=== PATIENT | male | born 1960 | race Caucasian/White ===

== ENCOUNTER 2019-10-23 09:34 | Day surgery (SDC) | payer BC ==
[~2019-10-23 09:34] MED LIST: Lactated Ringers 1,000 ML IV SCH; Lidocaine 1%/Sod Bicarbonate in NS 8.4% 1 ML Syringe IDERM PRN; Sodium Chloride 0.9% 10 ML Syringe FLUSH PRN
[2019-10-23] MEDS ORDERED: Propofol 200 MG/20 ML SDV ONE (10:40)
[2019-10-23] MEDS ORDERED: Midazolam 1 MG/ML 2 ML SDV ONE (10:41)
[2019-10-23] MEDS ORDERED: Lidocaine 1% 8 ML ONE (10:41)
[2019-10-23] MEDS ORDERED: ePHEDrine Sulfate/0.9% NaCl/Pf 25 MG/5 ML SYRINGE IV ONE (10:42)
[2019-10-23] MEDS ORDERED: fentaNYL 250 MCG/5 ML SDV ONE (10:48)
[2019-10-23] MEDS ORDERED: Ondansetron 4 MG/2 ML SDV ONE (10:49)
[2019-10-23] MEDS ORDERED: Dexamethasone 4 MG/ML 5 ML MDV ONE ×2 (10:49→15:29)
[2019-10-23] MEDS ORDERED: Albuterol 0.083% 2.5 MG/3 ML Neb Soln NEB ONE (11:18)
--- NOTE | 2019-10-23 11:20 | PCM.PREANE ---
Preanesthetic Assessment - Anesthesia/Transfusion/Family Hx Anesthesia History: Prior Anesthesia Without Reaction Family History of Anesthesia Reaction: No Transfusion History: No Prior Transfusion(s) - Review of Systems General: No Symptoms Pulmonary: No Symptoms Cardiovascular: No Symptoms Gastrointestinal: No Symptoms Neurological: No Symptoms Other: Reports: None - Physical Assessment NPO Status Date: 10/22/19 NPO Status Time: 19:00 Vital Signs: Last Vital Signs Temp 36.8 C 10/23/19 10:10 Pulse 55 L 10/23/19 10:10 Resp 18 10/23/19 10:10 BP 140/95 H 10/23/19 10:10 Pulse Ox 95 10/23/19 10:10 Height: 1.8 m Weight: 124.1 kg ASA Class: 2 Mental Status: Alert & Oriented x3 Airway Class: Mallampati = 2 Thyro-Mental Finger Breadths: 3 Mouth Opening Finger Breadths: 3 (TMJ no pain with opening) ROM/Head Extension: Full Lungs: Clear to Auscultation, Normal Respiratory Effort - Allergies Allergies/Adverse Reactions: Allergies Allergy/AdvReac Type Severity Reaction Status Date / Time No Known Allergies Allergy Verified 10/20/19 11:53 - Acknowledgements Anesthesia Type Planned: General Anesthesia Pt an Appropriate Candidate for the Planned Anesthesia: Yes Alternatives and Risks of Anesthesia Discussed w Pt/Guardian: Yes Pt/Guardian Understands and Agrees with Anesthesia Plan: Yes PreAnesthesia Questionnaire HEENT History: Reports: Impaired Vision, Other (See Below) Other HEENT History: TMJ, upper dentures, glasses Cardiovascular History: Reports: High Cholesterol, Hypertension, SOB on Exertion Respiratory History: Reports: Sleep Apnea Other Respiratory History: Uses CPAP Gastrointestinal History: Reports: Cholelithiasis, Fatty Liver, GERD, Hemorrhoids, Hiatal Hernia Genitourinary History: Reports: None Musculoskeletal History: Reports: Arthritis Psychiatric History: Reports: Anxiety Endocrine/Metabolic History: Reports: None Hematologic History: Reports: None Immunologic History: Reports: None Oncologic (Cancer) History: Reports: None Dermatologic History: Reports: Other (See Below) Other Dermatologic History: Basal cell carcinoma, atypical nevus - Past Surgical History Head Surgeries/Procedures: Reports: None HEENT Surgical History: Reports: Naso-Sinus Surgery, Tonsillectomy, Other (See Below) Other HEENT Surgeries/Procedures: Turbinate reduction, bilateral blepharoplasty , TMJ Cardiovascular Surgical History: Reports: None Respiratory Surgical History: Reports: None GI Surgical History: Reports: Colonoscopy, EGD Male Surgical History: Reports: None Endocrine Surgical History: Reports: None Neurological Surgical History: Reports: Thoracic Spine, Other (See Below) Other Neurological Surgeries/Procedures: Anterior cervical diskectomy and fusion , back surgery Musculoskeletal Surgical History: Reports: None Oncologic Surgical History: Reports: None Dermatological Surgical History: Reports: None - SUBSTANCE USE Smoking Status *Q: Former Smoker Tobacco Use Within Last Twelve Months: No Second Hand Smoke Exposure: No Recreational Drug Use History: No - HOME MEDS Home Medications: Home Meds Aspirin [Halfprin] 81 mg PO DAILY 10/20/19 [History] Calcium Carb/Vit D3/Minerals [Calcium 600+D Plus Minerals] 1 tab PO DAILY [History] Diltiazem HCl [Diltiazem ER] 300 mg PO DAILY 10/20/19 [History] Escitalopram Oxalate [Lexapro] 20 mg PO DAILY 10/20/19 [History] Esomeprazole Magnesium [Nexium] 20 mg PO DAILY 10/20/19 [History] LORazepam [Ativan] 0.25 - 0.5 mg PO DAILY 10/20/19 [History] Lisinopril [Zestril] 10 mg PO DAILY 10/20/19 [History] Multivitamin with Minerals [Multivitamins with Minerals] 1 tab PO DAILY [History] [place]-3/DHA/Epa/Fish Oil [[place]-3 Fish Oil 1,000 MG Sfgl] 1,000 mg PO BID [History] Pramipexole [Mirapex] 0.125 mg PO BEDTIME 10/20/19 [History] Pravastatin [Pravachol] 20 mg PO BEDTIME 10/20/19 [History] - CURRENT (IN HOUSE) MEDS Current Meds: Current Medications Lactated Ringer's (Ringers, Lactated) 1,000 mls @ 125 mls/hr IV ASDIRECTED MARCOS Stop: 10/23/19 23:00 Last Admin: 10/23/19 10:22 Dose: 125 mls/hr Lidocaine/Sodium Bicarbonate (Buffered Lidocaine 1% In Ns 8.4%) 0.25 ml IDERM ONETIME PRN PRN Reason: Prior to IV Start Stop: 10/23/19 18:00 Sodium Chloride (Saline Flush) 10 ml FLUSH ASDIRECTED PRN PRN Reason: Keep Vein Open Stop: 10/23/19 18:00 Discontinued Medications Dexamethasone (Dexamethasone) Confirm Administered Dose 20 mg .ROUTE .STK-MED ONE Stop: 10/23/19 10:50 Ephedrine Sulfate (Ephedrine 25 Mg/5 Ml Syringe) Confirm Administered Dose 25 mg IV .STK-MED ONE Stop: 10/23/19 10:43 Fentanyl (Sublimaze) Confirm Administered Dose 250 mcg .ROUTE .STK-MED ONE Stop: 10/23/19 10:49 Lidocaine HCl (Xylocaine-Mpf 1%) Confirm Administered Dose 8 mls @ as directed .ROUTE .STK-MED ONE Stop: 10/23/19 10:42 Midazolam HCl (Versed 1 Mg/Ml) Confirm Administered Dose 2 mg .ROUTE .STK-MED ONE Stop: 10/23/19 10:42 Miscellaneous Medication (Phenylephrine 1 Mg/10 Ml-Ns) Confirm Administered Dose 1 mg IV .STK-MED ONE Stop: 10/23/19 10:43 Ondansetron HCl (Zofran) Confirm Administered Dose 4 mg .ROUTE .STK-MED ONE Stop: 10/23/19 10:50 Propofol (Diprivan 20 Ml) Confirm Administered Dose 400 mg .ROUTE .STK-MED ONE Stop: 10/23/19 10:41
[2019-10-23] MEDS ORDERED: Lidocaine 1% 50 ML MDV ONE (11:37)
[2019-10-23] MEDS ORDERED: Rocuronium 50 MG/5 ML Vial ONE ×2 (13:45→15:20)
[2019-10-23] MEDS ORDERED: HYDROmorphone 0.5 MG/0.5 ML Syringe ONE ×2 (13:48→14:54)
[2019-10-23] MEDS ORDERED: Ketamine 500 mg/10 ML MDV ONE (13:48)
[2019-10-23] MEDS ORDERED: Lactated Ringers 1,000 ML ONE ×2 (14:33→15:04)
[2019-10-23] MEDS ORDERED: Ondansetron 4 MG/2 ML SDV IVPUSH PRN (14:37)
[2019-10-23] MEDS ORDERED: fentaNYL 100 MCG/2 ML SDV IVPUSH PRN (14:37)
[2019-10-23] MEDS ORDERED: diphenhydrAMINE 50 MG/ML SDV IVPUSH PRN (14:37)
[2019-10-23] MEDS ORDERED: HYDROmorphone 0.5 MG/0.5 ML Syringe IVPUSH ONE (14:37)
[2019-10-23] MEDS ORDERED: Albuterol 6.7 GM Inhaler INH ONE (15:32)
[2019-10-23] MEDS ORDERED: Bupivacaine 0.25% 10 ML SDV ONE (15:43)
[2019-10-23] MEDS ORDERED: Albuterol 0.083% 2.5 MG/3 ML Neb Soln ONE (16:30)
[2019-10-23] MEDS ORDERED: Ketorolac 30 MG/ML SDV ONE (16:39)
--- NOTE | 2019-10-23 16:52 | PCM.POSTAN ---
POST ANESTHESIA ASSESSMENT - MENTAL STATUS Mental Status: Alert, Oriented, Other (Drowsy) - VITAL SIGNS Vital Signs: Last Vital Signs Temp 37.1 C 10/23/19 16:45 Pulse 88 L 10/23/19 16:45 Resp 14 10/23/19 16:45 BP 163/76 H 10/23/19 16:45 Pulse Ox 91 L 10/23/19 16:45 1631 98.4F 145/110 88 19 90% - RESPIRATORY Respiratory Status: Respiratory Rate WNL, Airway Patent, O2 Saturation Stable, Supplemental Oxygen - CARDIOVASCULAR CV Status: Pulse Rate WNL, Blood Pressure Stable - GASTROINTESTINAL GI Status: No Symptoms - PAIN Pain Score: 0 - POST OP HYDRATION Hydration Status: Adequate & Stable
--- NOTE | 2019-10-23 17:28 | PCM48HPAN ---
Post Anesthesia Note - EVALUATION WITHIN 48HRS OF ANESTHETIC Vital Signs in Normal Range: Yes Patient Participated in Evaluation: Yes Respiratory Function Stable: Yes Airway Patent: Yes Cardiovascular Function Stable: Yes Hydration Status Stable: Yes Pain Control Satisfactory: Yes Nausea and Vomiting Control Satisfactory: Yes Mental Status Recovered: Yes Vital Signs: Last Vital Signs Temp 37.0 C 10/23/19 17:15 Pulse 55 L 10/23/19 10:10 Resp 18 10/23/19 17:15 BP 127/64 10/23/19 17:15 Pulse Ox 96 10/23/19 17:15
--- NOTE | 2019-10-23 17:39 | OR ---
DATE OF OPERATION: 10/23/2019 SURGEON: Amanuel Jerez MD PREOPERATIVE DIAGNOSIS: Left inguinal pain. POSTOPERATIVE DIAGNOSIS: Left inguinal hernia. OPERATION PERFORMED: Laparoscopic left inguinal hernia repair with mesh. ESTIMATED BLOOD LOSS: 10 mL. ANESTHESIA: General endotracheal. COMPLICATIONS: None. NEED FOR AIR SAW OPERATOR: Good assistance was needed in this case. The doctor's assistant helped with patient positioning, holding the camera during the operation and wound dressing at the end of the case. INDICATIONS AND CONSENT: Mr. Leo Rodriguez is a 58-year-old male who has been having left inguinal pain for several months. The pain is worse when the patient lifts anything, however, without lifting, the pain is not bothersome. So, his PCP, Dr. Azevedo, who ordered an ultrasound and that was suggestive of a left-sided inguinal hernia. When he came to see me, wanted to confirm the hernia. I did both, CT scan and MRI, both of which were negative for inguinal hernia. The patient continued to complain of the pain. Due to his symptoms located in the right inguinal hernia just lateral to the pubic tubercle, I suspect the patient had an occult hernia that is not visible on imaging. Therefore, I offered the patient laparoscopy with left inguinal herniorrhaphy. The patient agreed. We discussed at length the risks, benefits, and alternatives. Risks discussed included recurrent pain including chronic neuralgia, infection, bleeding, bruising, blood clots, and need for additional interventions. The patient understood and agreed to proceed with the procedure. Informed consent was obtained. DESCRIPTION OF PROCEDURE: The patient was taken to the operating room and placed in supine position. Following induction of general endotracheal anesthesia, preop antibiotics consisting of Ancef were given. The patient was padded and arms tucked bilaterally. Then, a time-out was performed. Then, the patient's abdomen was clipped of any hair and prepped and draped in the usual sterile fashion. A formal time-out was performed prior to the start of the procedure including the Templeton catheter was also placed. Then, infraumbilical incision was made after injecting local anesthetic. The umbilical stalk was elevated and a Veress needle was introduced. The abdomen was then insufflated to 15 mmHg and then 12 trocar was inserted through the infraumbilical position under direct visualization of the laparoscope. Upon entrance to the abdomen, the abdomen was inspected. There was no injury to the abdominal viscera from Veress needle or trocar insertion. Then, 2 additional 5 mm trocars were placed, 1 on the left abdomen and another on the right abdomen. Then, we visualized the inguinal areas. The left inguinal area had a small indirect hernia defect. The right inguinal area did not have any visible hernia defect. Because of the presence of the small hernia defect, we proceeded with hernia repair. A peritoneal flap was created using scissors and occasional cautery. Lateral dissection was made just above the ASIS, and the medial dissection was made all the way to the Miguel ligament and Miguel ligament was exposed as well as the pubic tubercle. Then, the hernia sac was reduced, and the hernia defect was now clearly visible. There was also a small hernia defect in the direct position as well. Once the peritoneum was reduced down enough to allow about 3 cm overlap of the mesh, and the mesh was brought into the field. This was Bard 3DMax knitted polypropylene mesh pre-formed for the left inguinal hernia. The mesh was placed and seemed to be situated well of the left inguinal area. Then, SorbaFix was used to place 2 tacks at the Miguel ligament, 1 superiorly and 1 laterally above the ASIS. Once this was done, the mesh appeared to be lying well and flat covering both the hernias. Then, at this point, insufflation was reduced to 10, and we attempted to tack the peritoneal flap back into the abdomen to cover the entirety of the mesh. However, the peritoneal flap kept tearing without any coverage. Therefore, decision was made to proceed with sewing the flap. A 2-0 Vicryl stitch was brought into the field with laparoscopic needle hazardous materials tanker driver, and this was used to sew the flap together and covering the entirety of the mesh. Once this was done, we proceeded with TAP block placement, and we used 0.25 Marcaine, 30 mL of this was injected into the transversus abdominis plane under laparoscopic visualization. Once this was done, the abdomen was desufflated and trocars were removed. Prior to removing the trocar, the fascia at the infraumbilical incision was reapproximated together with 0 Vicryl using Jarod-Marina device. The rest of the incisions were closed at the skin level using 4-0 Monocryl along with the infraumbilical incision. The patient tolerated the procedure well. At the end of the procedure; all instruments, sharps, and sponges were counted and found to be correct x2. The patient was awoken from anesthesia, extubated, and taken to the PACU in stable condition. The patient will go home today as per plan and will come back to clinic in 2 weeks for postop check. MMODAL /[id number]
== END 2019-10-23 20:15 | disposition home or self-care (01) ==
LOC: JD.SDS 09:34 → JD.MS 17:40 → JD.SDS 20:15
PROVIDERS: ATTEND Surgery
DX: K40.90 Unilateral inguinal hernia, without obstruction or gangrene, not specified as recurrent (principal); K21.9 Gastro-esophageal reflux disease without esophagitis; I10 Essential (primary) hypertension; E78.5 Hyperlipidemia, unspecified; Z98.890 Other specified postprocedural states; Z79.899 Other long term (current) drug therapy; Z79.82 Long term (current) use of aspirin; Z87.891 Personal history of nicotine dependence
CPT/HCPCS: 49650; 94640; A9270; J1100; J1170; J1885; J2001; J2250; J2405; J2704; J2710; J3010; J3490; J7120; J0171; J2370

== ENCOUNTER 2020-10-10 07:11 | Day surgery (SDC) | payer BC ==
[~2020-10-10 07:11] MED LIST changes: +EPINEPHrine 1 MG/ML 30 ML MDV IRR SCH; +Propofol 200 MG/20 ML SDV ONE; +fentaNYL 100 MCG/2 ML SDV ONE
[2020-10-10] MEDS ORDERED: Midazolam 1 MG/ML 2 ML SDV ONE (07:12)
[2020-10-10] MEDS ORDERED: Dexmedetomidine 200 MCG/2 ML SDV ONE (07:13)
[2020-10-10] MEDS ORDERED: Dexamethasone 4 MG/ML 5 ML MDV ONE (07:13)
[2020-10-10] MEDS ORDERED: Lidocaine 2% with EPINEPHrine 1:200,000 20 ML SDV ONE (07:15)
[2020-10-10] MEDS ORDERED: Ropivacaine 0.5% 5 MG/ML 30 ML SDV ONE (07:15)
[2020-10-10] MEDS ORDERED: Bupivacaine 0.25% 10 ML SDV ONE (07:47)
--- NOTE | 2020-10-10 07:50 | PCM.PREANE ---
Preanesthetic Assessment - Procedure Proposed Procedure: Left shoulder video arthroscopy - Anesthesia/Transfusion/Family Hx Anesthesia History: Prior Anesthesia Without Reaction Transfusion History: No Prior Transfusion(s) - Review of Systems General: No Symptoms Pulmonary: No Symptoms Cardiovascular: No Symptoms Gastrointestinal: No Symptoms Neurological: No Symptoms Other: Reports: None - Physical Assessment NPO Status Date: 10/09/20 NPO Status Time: 20:00 Vital Signs: 132/96 61 95% RA ASA Class: 2 Mental Status: Alert & Oriented x3 Airway Class: Mallampati = 3 Dentition: Reports: Dentures (upper), Edentulous (upper), Broken Tooth/Teeth Thyro-Mental Finger Breadths: 3 Mouth Opening Finger Breadths: 3 ROM/Head Extension: Full Lungs: Clear to Auscultation, Normal Respiratory Effort Cardiovascular: Regular Rate, Regular Rhythm - Allergies Allergies/Adverse Reactions: Allergies Allergy/AdvReac Type Severity Reaction Status Date / Time No Known Allergies Allergy Verified 10/10/20 08:11 - Acknowledgements Anesthesia Type Planned: General Anesthesia, Regional Block, MAC Pt an Appropriate Candidate for the Planned Anesthesia: Yes Alternatives and Risks of Anesthesia Discussed w Pt/Guardian: Yes Pt/Guardian Understands and Agrees with Anesthesia Plan: Yes PreAnesthesia Questionnaire HEENT History: Reports: Impaired Vision, Other (See Below) Other HEENT History: TMJ with surgery, upper dentures, glasses Cardiovascular History: Reports: High Cholesterol, Hypertension, SOB on Exertion Respiratory History: Reports: Sleep Apnea Gastrointestinal History: Reports: Cholelithiasis, Fatty Liver, GERD, Hemorrhoids, Hiatal Hernia, Other (See Below) Other Gastrointestinal History: fatty liver, schatski's ring Genitourinary History: Reports: None SLIP COVER SEWER History: Reports: None Musculoskeletal History: Reports: Arthritis, Other (See Below) Other Musculoskeletal History: left shoulder pain, arthritits Neurological History: Reports: None Psychiatric History: Reports: Anxiety Endocrine/Metabolic History: Reports: None Hematologic History: Reports: None Immunologic History: Reports: None Oncologic (Cancer) History: Reports: None Dermatologic History: Reports: Other (See Below) Other Dermatologic History: Basal cell carcinoma, atypical nevus - Infectious Disease History Infectious Disease History: Reports: None - Past Surgical History Head Surgeries/Procedures: Reports: None HEENT Surgical History: Reports: Naso-Sinus Surgery, Tonsillectomy, Other (See Below) Other HEENT Surgeries/Procedures: Turbinate reduction, bilateral blepharoplasty, TMJ Cardiovascular Surgical History: Reports: None Respiratory Surgical History: Reports: None GI Surgical History: Reports: Colonoscopy, EGD, Hernia Repair/Other Female Surgical History: Reports: None Male Surgical History: Reports: None Endocrine Surgical History: Reports: None Neurological Surgical History: Reports: Thoracic Spine, Other (See Below) Other Neurological Surgeries/Procedures: Anterior cervical diskectomy and fusion, back surgery Musculoskeletal Surgical History: Reports: None Oncologic Surgical History: Reports: None Dermatological Surgical History: Reports: None - SUBSTANCE USE Tobacco Use Status *Q: Former Tobacco User Recreational Drug Use History: No - HOME MEDS Home Medications: Home Meds Aspirin [Halfprin] 81 mg PO DAILY 10/20/19 [History] Calcium Carb/Vit D3/Minerals [Calcium 600+D Plus Minerals] 1 tab PO BID 10/20/19 [History] Escitalopram Oxalate [Lexapro] 20 mg PO DAILY 10/20/19 [History] Esomeprazole Magnesium [Nexium] 20 mg PO DAILY 10/20/19 [History] LORazepam [Ativan] 0.25 - 0.5 mg PO DAILY 10/20/19 [History] Multivitamin with Minerals [Multivitamins with Minerals] 1 tab PO DAILY 10/20/19 [History] Pramipexole [Mirapex] 0.125 mg PO BEDTIME 10/20/19 [History] Pravastatin [Pravachol] 20 mg PO BEDTIME 10/20/19 [History] dilTIAZem HCL [Diltiazem 24Hr ER] 300 mg PO DAILY 10/20/19 [History] lisinopriL [Zestril] 10 mg PO DAILY 10/20/19 [History] Cholecalciferol (Vitamin D3) [Vitamin D3] 5,000 unit PO DAILY 10/09/20 [History] Acetaminophen/HYDROcodone [[place] 325-5 MG] 1 - 2 tab PO Q6H PRN #30 tablet 10/10/20 [Rx] Cyclobenzaprine [Flexeril] 10 mg PO BID PRN #20 tab 10/10/20 [Rx] - CURRENT (IN HOUSE) MEDS Current Meds: Current Medications Epinephrine HCl (Adrenalin) 3 mg IRR ONETIME MARCOS Stop: 10/10/20 23:00 Lactated Ringer's (Ringers, Lactated) 1,000 mls @ 125 mls/hr IV ASDIRECTED MARCOS Stop: 10/10/20 23:00 Last Admin: 10/10/20 07:15 Dose: 125 mls/hr Documented by: Lidocaine/Sodium Bicarbonate (Buffered Lidocaine 1% In Ns 8.4%) 0.25 ml IDERM ONETIME PRN PRN Reason: Prior to IV Start Stop: 10/10/20 18:00 Last Admin: 10/10/20 07:15 Dose: 0.25 ml Documented by: Sodium Chloride (Saline Flush) 10 ml FLUSH ASDIRECTED PRN PRN Reason: Keep Vein Open Stop: 10/10/20 18:00 Discontinued Medications Dexamethasone (Dexamethasone) Confirm Administered Dose 20 mg .ROUTE .STK-MED ONE Stop: 10/10/20 07:14 Dexmedetomidine HCl (Precedex) Confirm Administered Dose 200 mcg .ROUTE .STK-MED ONE Stop: 10/10/20 07:14 Fentanyl (Sublimaze) Confirm Administered Dose 100 mcg .ROUTE .STK-MED ONE Stop: 10/10/20 07:12 Lidocaine/Epinephrine (Xylocaine-Mpf 2%-Epi 1:200,000) Confirm Administered Dose 20 ml .ROUTE .STK-MED ONE Stop: 10/10/20 07:16 Midazolam HCl (Versed 1 Mg/Ml) Confirm Administered Dose 6 mg .ROUTE .STK-MED ONE Stop: 10/10/20 07:13 Propofol (Diprivan 20 Ml) Confirm Administered Dose 600 mg .ROUTE .STK-MED ONE Stop: 10/10/20 07:12 Ropivacaine (Naropin 0.5%) Confirm Administered Dose 30 ml .ROUTE .STK-MED ONE Stop: 10/10/20 07:16
--- NOTE | 2020-10-10 07:53 | PCM.PRNOTE ---
- Free Text/Narrative Note: Postoperative regional pain control requested by surgeon. Pre-op Dx: Left Rotator cuff tear Surgical procedure: Left Rotator cuff repair with subacromial decompression Procedure: Lt Interscalene block with U/S guidance Requesting physician: Dr. Fofana Ct Risks and benefits discussed with the patient preoperatively including infection, bleeding, incomplete or failed block, possible nerve damage, local anesthetic toxicity. Chart reviewed, VS stable. Permit signed. Patient in preoperative room 7, stable , alert and awake. Time out performed. Oxygen 2L via FM. Left side of the neck was prepped with Chloraprep x 1 and allowed to dry. Midazolam IV 4 mg given incrementally. Under aseptic technique, the brachial plexus was identified under ultrasound prior to needle insertion. Local infiltration with 2mls of 1% Lidocaine. 2" Stimuplex needle #22 G was inserted under US guidance. Neuromuscular response of biceps contraction and forearm twitching elicited at 0.6 mA. Under direct visualization of needle tip the injection of 0.5% Ropivacaine with 1:200k epinephrine, with 8 mg of Dexamethasone and 40 mcg of Dexmedetomidine, total of 25 mls in divided doses, maintaining negative aspiration was completed without problems. No local anesthetic toxicity was noted. Patient is awake, stable and tolerated the procedure well. Please see the attached U/S images Time: 07:35 - 07:44
[2020-10-10] MEDS ORDERED: ceFAZolin 1 GM Vial ONE (08:31)
[2020-10-10] MEDS ORDERED: Lidocaine 1% 4 ML ONE (08:33)
[2020-10-10] MEDS ORDERED: Lactated Ringers 1,000 ML ONE (08:36)
[2020-10-10] MEDS ORDERED: Propofol 200 MG/20 ML SDV ONE ×2 (08:44→09:31)
[2020-10-10] MEDS ORDERED: Ondansetron 4 MG/2 ML SDV ONE (08:46)
[2020-10-10] MEDS ORDERED: Acetaminophen/HYDROcodone 325-5 MG Tab PO SCH (10:00)
--- NOTE | 2020-10-10 10:16 | PCM48HPAN ---
Post Anesthesia Note - EVALUATION WITHIN 48HRS OF ANESTHETIC Vital Signs in Normal Range: Yes Patient Participated in Evaluation: Yes Respiratory Function Stable: Yes Airway Patent: Yes Cardiovascular Function Stable: Yes Hydration Status Stable: Yes Pain Control Satisfactory: Yes (oral meds are given) Nausea and Vomiting Control Satisfactory: Yes Mental Status Recovered: Yes Vital Signs: Last Vital Signs Temp 97.2 F 10/10/20 09:51 Pulse 88 10/10/20 09:51 Resp 12 10/10/20 09:51 BP 153/102 H 10/10/20 09:51 Pulse Ox 92 L 10/10/20 09:51
[2020-10-10] MEDS ORDERED: Cyclobenzaprine 10 MG Tab PO SCH (10:30)
--- NOTE | 2020-10-10 11:37 | PCM.OPNOTE ---
- General Post-Op/Procedure Note Date of Surgery/Procedure: 10/10/20 Operative Procedure(s): left shoulder video arthroscopy with subacromial decompression, extensive debridement, biceps tenotomy and SLAP repair Pre Op Diagnosis: left shoulder impingement with rotator cuff tear Post-Op Diagnosis: left shoulder impingement with biceps tendinopathy and SLAP tear with bursitis and synovitis Anesthesia Technique: MAC, Regional Block Primary Surgeon: Brigido Beth Anesthesia Provider: Harjinder [place] Mechanic Helper: Cristine Zaragoza EBTanesha in mLs: 5 Complications: None Condition: Good
--- NOTE | 2020-10-20 14:07 | OR ---
DATE OF OPERATION: 10/10/2020 SURGEON: Brigido Beth MD OPERATION PERFORMED: Left shoulder video arthroscopy with subacromial decompression, extensive debridement, biceps tenotomy, and SLAP repair. PREOPERATIVE DIAGNOSIS: Left shoulder impingement, rotator cuff tear. POSTOPERATIVE DIAGNOSIS: Left shoulder impingement with biceps tendinopathy and SLAP tear with bursitis and synovitis. ANESTHESIA: MAC with regional block. ANESTHESIA PROVIDER: Kortney Olivares. ASSOCIATE DIRECTOR OF SALES: Cristine Zaragoza PA-C. ESTIMATED BLOOD LOSS: Less than 5 mL. COMPLICATIONS: None. CONDITION: Stable. DESCRIPTION OF PROCEDURE: The patient was identified in the preoperative holding area. Proper site was marked and identified by the surgeon. The patient was taken back to the operative theater where after adequate anesthesia the patient was placed in the lazy right lateral decubitus position. Wedge was placed posteriorly. The patient was secured to the table. Left upper extremity was then sterilely prepped and draped in the usual sterile fashion. OR time-out was performed. The patient received 2 g IV Ancef. 12 pounds traction was applied to the left upper extremity. Standard posterior incision was made. Scope trocar was introduced. The use of spinal needle with outside-in technique an anterior portal was created. The patient was noted to have significant biceps tendinopathy as well as fraying as well as a SLAP tear that was noted with type 2 SLAP tear that was otherwise stable. At this time, a biceps tenotomy was performed and an anchor was placed in the superior labrum to secure the superior labrum for repair of the SLAP tear. The patient's subscapularis tendon was intact. He had no signs of chondromalacia. I did perform extensive debridement of the extreme synovitis that was noted throughout the joint as well as any fraying to the superior labrum. Once it was completed, the patient was noted to have no chondromalacia, and attention was turned to subacromial space. A lateral portal was created. The patient was noted to have a large amount of bursitis and extensive debridement. The subacromial space was then done. The patient was noted to have a type 2/3 acromion and subacromial decompression was brought back to the smooth border with the posterior rim of the acromion. The patient's rotator cuff was noted to be frayed, but there was no tear noted throughout, just fraying that was noted but no repairable tear. At this time, adequate saline was irrigated through the shoulder. Excess saline was drained. 3-0 nylon suture was used for closure of the skin. The patient was placed in a sterile soft dressing and a pillow sling and sent to the PACU in stable condition. FRANNY /[id number]
== END 2020-10-10 12:30 | disposition home or self-care (01) ==
LOC: JD.SDS 07:11
PROVIDERS: ATTEND Orthopaedic Surgery
DX: S43.432A Superior glenoid labrum lesion of left shoulder, initial encounter (principal); M75.52 Bursitis of left shoulder; M25.812 Other specified joint disorders, left shoulder; M75.22 Bicipital tendinitis, left shoulder; I10 Essential (primary) hypertension; K21.9 Gastro-esophageal reflux disease without esophagitis; E78.00 Pure hypercholesterolemia, unspecified; Z79.899 Other long term (current) drug therapy; Z98.890 Other specified postprocedural states; Z87.891 Personal history of nicotine dependence
CPT/HCPCS: 01630; 64415; A9270-GY; C1713; J0171; J0690; J1100; J2250; J2405; J2704; J2795; J3010; J3490; J7120

== ENCOUNTER 2024-07-26 09:30 | Day surgery (SDC) | payer BC ==
[~2024-07-26 09:30] MED LIST changes: -EPINEPHrine 1 MG/ML 30 ML MDV IRR SCH; -Lactated Ringers 1,000 ML IV SCH; -Lidocaine 1%/Sod Bicarbonate in NS 8.4% 1 ML Syringe IDERM PRN; -Propofol 200 MG/20 ML SDV ONE; +Sodium Chloride 0.9% 10 ML Syringe FLUSH SCH; -fentaNYL 100 MCG/2 ML SDV ONE
[2024-07-26] MEDS ORDERED: Ketorolac 30 MG/ML SDV ONE (10:46)
[2024-07-26] MEDS ORDERED: Propofol 200 MG/20 ML SDV ONE ×2 (10:46→11:45)
[2024-07-26] MEDS ORDERED: Midazolam 1 MG/ML 2 ML SDV ONE (10:46)
[2024-07-26] MEDS ORDERED: Ondansetron 4 MG/2 ML SDV ONE (10:46)
[2024-07-26] MEDS ORDERED: Lactated Ringers 1,000 ML ONE (10:46)
[2024-07-26] MEDS ORDERED: dexmedeTOMIDine HCl 200 MCG/2 ML SDV ONE (10:46)
[2024-07-26] MEDS ORDERED: Dexamethasone 4 MG/ML 5 ML MDV ONE (10:46)
[2024-07-26] MEDS ORDERED: ceFAZolin 2 GM Vial ONE (10:47)
[2024-07-26] MEDS: Lactated Ringers 1,000 ML IV SCH (10:55)
[2024-07-26] MEDS: oxyCODONE ER 10 MG TAB.ER PO SCH (10:57)
[2024-07-26] MEDS: Pregabalin 25 MG Cap PO SCH (10:57)
[2024-07-26] MEDS: Acetaminophen 325 MG Tab PO SCH (10:58)
[2024-07-26] MEDS ORDERED: Ropivacaine 0.5% 5 MG/ML 30 ML SDV ONE (11:17)
[2024-07-26] MEDS ORDERED: Ondansetron 4 MG/2 ML SDV IVPUSH PRN (12:08)
[2024-07-26] MEDS ORDERED: fentaNYL 100 MCG/2 ML SDV IVPUSH PRN (12:08)
[2024-07-26] MEDS ORDERED: HYDROmorphone 0.5 MG/0.5 ML Syringe IVPUSH PRN (12:08)
[2024-07-26] MEDS: Morphine 8 MG, EPINEPHrine 0.3 MG, Cefuroxime 750 MG, Ketorolac 30 MG, Sodium Chloride ... PRN (12:23)
[2024-07-26] MEDS: Tranexamic Acid 1,000 MG/10 ML Vial ONE (12:30)
[2024-07-26] MEDS: VANCOmycin 1 GM SDV ONE (12:30)
== END 2024-07-26 16:10 | disposition home or self-care (01) ==
LOC: JD.SDS 09:30
PROVIDERS: ATTEND Orthopaedic Surgery
DX: M17.12 Unilateral primary osteoarthritis, left knee (principal); I10 Essential (primary) hypertension; G47.33 Obstructive sleep apnea (adult) (pediatric); K21.9 Gastro-esophageal reflux disease without esophagitis; Z87.891 Personal history of nicotine dependence
CPT/HCPCS: 0055T; 27447; 64447; 73560; 97110; 97116; 97161; A9270; C1713; C1776; J0171; J0690; J0697; J1100; J1885; J2250; J2272; J2405; J2704; J2795; J7120; J3490